=== PATIENT | female | born 2000 | race Caucasian/White ===

== ENCOUNTER 2025-04-29 15:06 | Outpatient (CLI) | payer OTHER, SELFPAY ==
--- OUTSIDE RECORDS SUMMARY | 2025-04-29 17:47 | XMS_ITS | Clinical Summary ---
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 Gender Identity Not on file Sexual Orientation Not on file Last Filed Vital Signs Vital Sign Reading Time Taken Comments Blood Pressure 114/82 03/27/2023 9:33 AM CDT Pulse 102 03/27/2023 9:33 AM CDT Temperature 36.2 C (97.1 F) 03/27/2023 9:33 AM CDT Respiratory Rate 18 03/27/2023 9:33 AM CDT Oxygen Saturation 97% 03/27/2023 9:33 AM CDT Inhaled Oxygen Concentration - - Weight 118.8 kg (262 lb) 03/27/2023 9:33 AM CDT Height 160 cm (5' 3) 03/27/2023 9:33 AM CDT Body Mass Index 46.41 03/27/2023 9:33 AM CDT Plan of Treatment Health Maintenance Due Date Last Done Comments Cervical Cancer Screening 1999 Depression Screening 1999 Hepatitis C Screening 1999 Varicella Vaccines (2 of 2 - 2-dose childhood series) 2003 2000 Regular Well Visit/Exam 18-64 11/30/2017 DTaP/Tdap/Td Vaccine (7 - Td or Tdap) 12/15/2020 12/15/2010, 12/23/2004, 03/04/2001, Additional history exists Influenza Vaccine (#1) 2025 6, 04/13/2011, 05/28/2010, Additional history exists Hepatitis B Screening Completed 2000 , 03/25/2000, 02/01/2000 Pneumococcal vaccine <65 Completed 001, 05/24/2000, 03/25/2000, Additional history exists HPV Vaccines Completed 05/01/2012, 01/2011, 12/15/2010 Insurance [facility] CHOICE OOS Care Teams Fuel Cell Builder Relationship Specialty Start Date End Date Monika Lamb PA PCP - General Neurosurgery 03/27/23
--- OUTSIDE RECORDS SUMMARY | 2025-04-29 17:48 | XMS_ITS | Clinical Summary ---
Author Organization [facility] [place] Address [address] [place] [address] Phone Care Team Providers Care Activities Leader Name Role Phone Monika Lamb Primary Care Pro vider Allergies No known active allergies Medications hydroCHLOROthia zide (MICROZIDE) 12.5 MG Capsule Take 1 Capsule by mouth daily. 30 Capsule 2 02/01/2025 Active SUMAtriptan (IMITREX) 25 MG Tablet Take 1 Tablet by mouth once as needed for Migraine for up to 1 dose. Use as directed. May repeat dose in 2 hours if headache recurs. 9 Tablet 3 02/01/2025 Active Active Problems Problem Noted Date Diagnosed Date Primary hypertension 02/01/2025 Generalized headaches 02/01/2025 Well adult exam 02/01/2025 Obesity without serious comorbidity 02/01/2025 Encounters Date Type Department Care Team Description 03/04/2025 8:00 AM CDT Office Visit [facility] - [place] [address] [place] [phone] Monika Lamb PAC Hypertension, unspecified type (Primary Dx); Nasal septal deviation; Retention cyst of nasal sinus; Generalized headaches Discharge Disposition: Discharged to home or Selfcare 03/04/2025 Travel 02/16/2025 8:37 AM CDT - 02/16/2025 11:59 PM CDT Hospital Encounter [facility] [address] [place] [address] Monika Lamb PAC Discharge Disposition: Discharged to home or Selfcare 02/16/2025 Travel 02/14/2025 Travel 02/05/2025 Transcribe Orders [facility] [address] [facility] [place] [address] Monika Lamb PAC Generalized headaches (Primary Dx) 02/01/2025 12:10 PM CDT Lab [address] [phone] Primary hypertension; Generalized headaches; Well adult exam; Need for hepatitis C screening test Discharge Disposition: Discharged to home or Selfcare 02/01/2025 10:45 AM CDT Office [place] [address] [place] [address] Monika Lamb PAC Primary hypertension (Primary Dx); Generalized headaches; Well adult exam; Obesity without serious comorbidity, unspecified class, unspecified obesity type; Need for hepatitis C screening test; Possible Discharge Disposition: Discharged to home or Selfcare 02/01/2025 Results Follow-Up [address] [phone] Monika Lamb PAC CMP (COMPREHENSIVE METABOLIC PANEL), HEMOGLOBIN A1C W/ ESTIMATED GLUCOSE, LIPID PANEL, Additional followed-up results: 5 02/01/2025 Travel 01/30/2025 Telephone [facility] Call Center [address] [place] [phone] Monika Lamb PAC Advice Only from Last 3 Months Family History Medical History Relation Name Comments Depression Father Depression Mother Relation Name Status Comments Father Alive Mother Alive Social History Tobacco Use Types Packs/Day Years Used Date Smoking Tobacco: Never Passive Smoke Exposure: Never Smokeless Tobacco: Never Tobacco Cessation:Counseling Given: No Alcohol Use Standard Drinks/Week Comments Yes 0 (1 standard drink = 0.6 oz pur e alcohol) PHQ-2 Answer Date Recorded Total Score - Questions 1-9 0 12/05 Education Answer Date Recorded What is the highest level of school you have completed or the highest degree you have received? Associate degree: occupational, technical, or vocational program 12/03/2022 Sexually Active Control Partners Comments Yes Comments No Sex and Gender Information Value Date Recorded Sex Assigned at Female 02/04/2025 4:29 PM CDT Legal Sex Female 1:54 PM CDT Gender Identity Female 02/04/2025 4:29 PM CDT Sexual Orientation Not on file Last Filed Vital Signs Vital Sign Reading Time Taken Comments Blood Pressure 122/82 03/04/2025 8:10 AM CDT Pulse 90 03/04/2025 8:10 AM CDT Temperature 36.3 C (97.3 F) 03/04/2025 8:10 AM CDT Respiratory Rate 12 03/04/2025 8:10 AM CDT Oxygen Saturation 98% 03/04/2025 8:10 AM CDT Inhaled Oxygen Concentration - - Weight 122.9 kg (271 lb) 03/04/2025 8:10 AM CDT Height 152.4 cm (5') 12/31/2024 1:25 PM CDT Body Mass Index 52.93 12/31/2024 1:25 PM CDT Plan of Treatment Upcoming Encounters Date Type Department Care Team (Late st Contact Info) Description 09/02/2025 8:00 AM CDT Office Visit [facility] - Primary Care - [place] [address] [place] [phone] Monika Lamb PAC [address] [place] [address] Health Maintenance Due Date Last Done Comments TdaP Immunization 1999 Varicella Immunization (1 of 2 - 13+ 2-dose series) 11/30/2012 Human Papillomavirus (HPV) Immunization (1 - 3-dose series) 11/30/2014 Hepatitis B Immunization (1 of 3 - 19+ 3-dose series) 11/30/2018 Influenza Immunization (#1) 2025 SARS-COV-2 Immunization (2024- season) 2025 Pap Smear 01/01/2028 12/31/2024 Respiratory Syncytial Virus (RSV) Immunization (Adult) (1 - 1-dose 75+ series) 11/30/2074 Hepatitis C Virus (HCV) Screening Completed 025 Meningococcal Immunization (ACWY) Aged Out No longer eligible based on patient's age to complete this topic Pneumococcal Immunization Combined Aged Out No longer eligible based on patient's age to complete this topic Rotavirus Immunization Aged Out No lo nger eligible based on patient's age to complete this topic Procedures Procedure Name Priority Date/Time Associated Diagnosis Comments MRI BRAIN W/WO CONTRAST Routine 02/16/2025 9:42 AM CDT Generalized headaches POCT URINE HCG () Routine 02/01/2025 11:28 AM CDT Possible THYROID SCREEN WITH REFLEX Routine 02/01/2025 11:16 AM CDT Primary hypertension Generalized headaches Well adult exam CBC WITH AUTO DIFFERENTIAL Routine 02/01/2025 11:16 AM CDT Primary hypertension Generalized headaches Well adult exam HEPATITIS C ANTIBODY Routine 02/01/2025 11:16 AM CDT Need for hepatitis C screening test THYROXINE (T4) FREE Routine 02/01/2025 1 1:16 AM CDT Primary hypertension Generalized headaches Well adult exam THYROID SCREEN WITH REFLEX Routine 02/01/2025 11:16 AM CDT Primary hypertension Generalized headaches Well adult exam LIPID PANEL Routine 02/01/2025 11:16 AM CDT Primary hypertension Generalized headaches Well adult exam HEMOGLOBIN A1C W/ ESTIMATED GLUCOSE Routine 02/01/2025 11:16 AM CDT Primary hypertension Generalized headaches Well adult exam COMPLETE BLOOD COUNT (CBC) WITH DIFF Routine 02/01/2025 11:16 AM CDT Primary hypertension Generalized headaches Well adult exam CMP (COMPREHENSIVE METABOLIC PANEL) Routine 02/01/2025 11:16 AM CDT Primary hypertension Generalized headaches Well adult exam from Last 3 Months Results * MRI BRAIN W/WO CONTRAST (02/16/2025 9:42 AM CDT) Anatomical Region Laterality Modality Head N/A Magnetic Resonan ce 02/16/2025 9:42 AM CDT Impressions 02/16/2025 10:03 AM CDT IMPRESSION: 1. No acute intracranial abnormality or suspicious mass. 2. Moderate sized polyps or retention cysts in the left maxillary sinus. 3. Leftward nasal septal deviation with osseous septal spur contacting the left inferior nasal turbinate, nonspecific though can be associated with contact point headache in the appropriate clinical setting. Narrative 02/16/2025 10:03 AM CDT DICTATING PHYSICIAN: Aly Summers M.D. - [facility] EXAM: MRI BRAIN W/WO CONTRAST, 02/16/2025 9:42 AM COMPARISON: None. INDICATION: Headache. PROCEDURE: Multiplanar, multisequence MR images were acquired of the brain before and after the intravenous administration of 20 mL of ProHance. FINDINGS: Brain: No acute hemorrhage, infarct, mass, or suspicious enhancement. Developmental venous anomaly along the posterior margin of the right sylvian fissure. Ventricles and extra-axial spaces: Appropriate for age. Orbits: Unremarkable. Paranasal sinuses: Moderate sized T2 hyperintense polyps or retention cysts in the left maxillary sinus, otherwise well aerated. Mastoid air cells: Clear. Bones: No acute abnormality. Additional findings: Leftward deviation of the nasal septum, and osseous septal spur appears to be contact the left inferior nasal turbinate. Dural venous sinuses appear grossly patent. There appears to be some focal narrowing of the distal transverse sinuses. Procedure Note Aly Summers MD - 02/16/2025 DICTATING PHYSICIAN: Aly Summers M.D. - [facility] EXAM: MRI BRAIN W/WO CONTRAST, 02/16/2025 9:42 AM COMPARISON: None. INDICATION: Headache. PROCEDURE: Multiplanar, multisequence MR images were acquired of thebrain before and after the intravenous administration of 20 mL ofProHance. FINDINGS: Brain: No acute hemorrhage, infarct, mass, or suspicious enhancement.Developmental venous anomaly along the posterior margin of the rightsylvian fissure. Ventricles and extra-axial spaces: Appropriate for age. Orbits: Unremarkable. Paranasal sinuses: Moderate sized T2 hyperintense polyps or retentioncysts in the left maxillary sinus, otherwise well aerated. Mastoid air cells: Clear. Bones: No acute abnormality. Additional findings: Leftward deviation of the nasal septum, and osseousseptal spur appears to be contact the left inferior nasal turbinate. Duralvenous sinuses appear grossly patent. There appears to be some focalnarrowing of the distal transverse sinuses. IMPRESSION: 1. No acute intracranial abnormality or suspicious mass. 2. Moderate sized polyps or retention cysts in the left maxillarysinus. 3. Leftward nasal septal deviation with osseous septal spur contactingthe left inferior nasal turbinate, nonspecific though can be associatedwith contact point headache in the appropriate clinical setting. Monika Lamb [facility] IMG MR ORDERABLES Final Result * POCT URINE HCG () (02/01/2025 11:28 AM CDT) POC URINE Negative POC URINE CONTROL [place] Urine 02/01/2025 11:2 8 AM CDT Monika Lamb [facility] POINT OF CARE RA TING (MANUAL) Final Result * THYROID SCREEN WITH REFLEX (02/01/2025 11:16 AM CDT) TSH 1.279 0.300 - 5.000 mIU/L 02/01/2025 1:13 PM CDT [facility] Blood Venipuncture / Unknown 02/01/2025 11:16 AM CDT 02/01/2025 11:16 AM CDT Monika Lamb [facility] CHEMISTRY ORDERAB LES Final Result [facility] [address] [place] [address] * HEMOGLOBIN A1C W/ ESTIMATED GLUCOSE (02/01/2025 11:16 AM CDT) Pathologist [facility] HGB-A1C 5.1 4.0 - 6.0 % 02/01/2025 1:04 PM CDT [facility] Est Average Glucose 99.7 mg/dL 02/01/2025 1:04 PM CDT [facility] Blood Venipuncture / Unknown 02/01/2025 11:16 AM CDT 02/01/2025 11:16 AM CDT Narrative [facility] - 02/01/2025 1:04 PM CDT HEMOGLOBIN A1C: DIABETIC PATIENTS: WELL-CONTROLLED: 6.2 - 7.0 INTERMEDIATE WELL-CONTROLLED: 7.0 - 9.0 POORLY-CONTROLLED: >9.0 Specimens containing greater than 5% of Hemoglobin F may result in lower than expected % HbA1C results. Monika Lamb PAC CHEMISTRY ORDERAB LES Final Result [facility] [address] [place] [address] * CBC WITH AUTO DIFFERENTIAL (02/01/2025 11:16 AM CDT) Pathologist [facility] WBC 6.40 4.00 - 12.00 10(3)/mcL 02/01/2025 12:27 PM CDT [facility] RBC 5.19 3.80 - 5.30 10(6)/mcL 02/01/2025 12:27 PM CDT [facility] HEMOGLOBIN (HGB) 15.4 12.0 - 15.8 g/dL 02/01/2025 12:27 PM CDT [facility] HEMATOCRIT (HCT) 46.3 36.0 - 47.0 % 02/01/2025 12:27 PM CDT [facility] MCV 89.2 82.0 - 96.0 fL 02/01/2025 12:27 PM CDT [facility] MCH 29.7 26.0 - 34.0 pg 02/01/2025 12:27 PM CDT [facility] MCHC 33.3 31.0 - 36.0 g/dL 02/01/2025 12:27 PM CDT [facility] PLATELET COUNT 279 140 - 440 10(3)/mcL 02/01/2025 12:27 PM CDT [facility] RDW 11.9 11.8 - 15.5 % 02/01/2025 12:27 PM CDT [facility] MPV 10.3 9.7 - 12.4 fL 02/01/2025 12:27 PM CDT [facility] NEUTROPHILS 59.4 47.0 - 73.0 % 02/01/2025 12:27 PM CDT [facility] LYMPHOCYTES 28.8 18.0 - 42.0 % 02/01/2025 12:27 PM CDT [facility] MONOCYTES 8.3 4.0 - 12.0 % 02/01/2025 12:27 PM CDT [facility] EOSINOPHILS 2.7 0.0 - 5.0 % 02/01/2025 12:27 PM CDT [facility] BASOPHILS 0.5 0.0 - 1.0 % 02/01/2025 12:27 PM CDT [facility] IMMATURE GRANULOCYTE 0.3 0.0 - 0.4 % 02/01/2025 12:27 PM CDT [facility] ABSOLUTE NEUTROPHILS 3.81 1.60 - 7.70 10(3)/[facility] 02/01/2025 12:27 PM CDT [facility] ABSOLUTE LYMPHOCYTES 1.84 1.30 - 3.20 10(3)/mcL 02/01/2025 12:27 PM CDT [facility] ABSOLUTE MONOCYTES 0.53 0.20 - 1.00 10(3)/mcL 02/01/2025 12:27 PM CDT [facility] ABSOLUTE EOSINOPHIL 0.17 0.00 - 0.40 10(3)/mcL 02/01/2025 12:27 PM CDT [facility] ABSOLUTE BASOPHILS 0.03 0.00 - 0.10 10(3)/mcL 02/01/2025 12:27 PM CDT [facility] ABSOLUTE IMMATURE GRANULOCYTE 0.02 0.00 - 0.03 10 (3) mcL. 02/01/2025 12:27 PM CDT [facility] NRBC PER 100 WBC 0 02/02/20 12:27 PM CDT [facility] Blood Venipuncture / Unknown 02/01/2025 11:16 AM CDT 02/01/2025 11:16 AM CDT Monika Lamb PAC HEMATOLOGY ORDERA BLES Final Result Performing Organization Address City/[facility]/ZIP Co de Phone Number [facility] [address] [place] [address] * THYROXINE (T4) FREE (02/01/2025 11:16 AM CDT) T4 FREE 0.9 0.7 - 1.9 ng/dL 02/01/2025 1:10 PM CDT [facility] Blood Venipuncture / Unknown 02/01/2025 11:16 AM CDT 02/01/2025 11:16 AM CDT Monika Lamb PAC CHEMISTRY ORDERAB LES Final Result Performing Organization Address City/[facility]/ZIP Co de Phone Number [facility] [address] [place] [address] * (ABNORMAL) LIPID PANEL (02/01/2025 11:16 AM CDT) CHOLESTEROL 205(H) <200 mg/dL 02/01/2025 1:05 PM CDT [facility] TRIGLYCERIDES 158(H) <150 mg/dL 02/01/2025 1:05 PM CDT [facility] HDL CHOLESTEROL 60 >40 mg/dL 1:05 PM CDT [facility] LDL 113 <130 mg/dL 02/01/2025 1:05 PM CDT [facility] VLDL 32 10 - 50 mg/dL 02/01/2025 1:05 PM CDT [facility] CHOL/HDL RATIO 3.4 0.0 - 4.4 02/01/2025 1:05 PM CDT [facility] NON-HDL CHOLESTEROL 145(H) <130 mg/dL 02/01/2025 1:05 PM CDT [facility] IS THE PATIENT REQUIRED TO BE FASTING? Yes 02/01/2025 1:05 PM CDT [facility] HAS THE PATIENT BEEN FASTING? Yes 02/01/2025 1:05 PM CDT [facility] Blood Venipuncture / Unknown 02/01/2025 11:16 AM CDT 02/01/2025 11:16 AM CDT Monika Lamb PAC CHEMISTRY ORDERAB LES Final Result [facility] [address] [place] [address] * HEPATITIS C ANTIBODY (02/01/2025 11:16 AM CDT) hepatitis C antibody 0.08 <1 S/CO 02/01/2025 10:12 PM CDT [facility] Comment: Signal/Cutoff ratio < 0.79 is Nondetected Signal/Cutoff ratio 0.80-0.99 is Grayzone Signal/Cutoff ratio > 0.99 is Detected Supplemental assays are recommended if signal/cutoff ratio is >/=1.00. Signal/cutoff ratio result >/= 5.00 is 97% predictive of positivity for recombinant immunoblot assay (RIBA) and will be reported to the [place] Department of Public Health as required. Blood Venipuncture / Unknown 02/01/2025 11:16 AM CDT 02/01/2025 11:16 AM CDT Monika Stockarlin PAC CHEMISTRY ORDERAB LES Final Result [facility] [address] [place] [address], * CMP (COMPREHENSIVE METABOLIC PANEL) (02/01/2025 11:16 AM CDT) SODIUM 140 136 - 145 mmol/L 02/01/2025 1:05 PM CDT [facility] POTASSIUM 4.1 3.5 - 5.1 mmol/L 02/01/2025 1:05 PM CDT [facility] CHLORIDE 105 98 - 107 mmol/L 02/01/2025 1:05 PM CDT [facility] CO2, VENOUS 26 22 - 30 mmol/L 02/01/2025 1:05 PM CDT [facility] ANION GAP 13.1 <18.0 mmol/L 02/01/2025 1:05 PM CDT [facility] GLUCOSE 82 70 - 99 mg/dL 02/01/2025 1:05 PM CDT [facility] BUN 11 5 - 18 mg/dL 02/01/2025 1:05 PM CDT [facility] CREATININE, BLOOD 0.75 0.60 - 1.00 mg/dL 02/01/2025 1:05 PM CDT [facility] BUN/CREATININE RATIO 15 12 - 20 ratio 02/01/2025 1:05 PM CDT [facility] TOTAL PROTEIN 7.3 6.0 - 8.0 g/dL 02/01/2025 1:05 PM CDT [facility] ALBUMIN 4.2 3.5 - 5.0 g/dL 02/01/2025 1:05 PM CDT [facility] A/G RATIO 1.4 1.0 - 2.2 02/01/2025 1:05 PM CDT [facility] CALCIUM 9.2 8.7 - 10.5 mg/dL 02/01/2025 1:05 PM CDT [facility] T BILI 0.3 0.2 - 1.2 mg/dL 02/01/2025 1:05 PM CDT [facility] SGOT (AST) 41 <43 U/L 02/01/2025 1:05 PM CDT [facility] SGPT (ALT) 42 <56 U/L 02/01/2025 1:05 PM CDT [facility] ALKALINE PHOSPHATASE 120 40 - 150 U/L 02/01/2025 1:05 PM CDT [facility] IS THE PATIENT REQUIRED TO BE FASTING? No 02/01/2025 1:05 PM CDT [facility] GFR, ESTIMATED >60 >=60 02/01/2025 1:05 PM CDT [facility] Comment: Creatinine Clearance is the preferred criteria for selecting drug dose adjustments in renally impaired patients. The GFR is provided as additional pertinent clinical information. GFR is reported in mL/min/1.73 sq m. Calculation based on the 2020 Chronic Kidney Disease Epidemiology Collaboration (CKD-EPI) equation refit without adjustment for race. GFR, EST. >60 >=60 025 1:05 PM CDT [facility] Comment: Creatinine Clearance is the preferred criteria for selecting drug dose adjustments in renally impaired patients. The GFR is provided as additional pertinent clinical information. GFR is reported in mL/min/1.73 sq m. Calculation based on the 2009 Chronic Kidney Disease Epidemiology Collaboration (CKD-EPI). GFR, EST. NONAFRICAN >60 >=60 02/01/2025 1:05 PM CDT [facility] Comment: Creatinine Clearance is the preferred criteria for selecting drug dose adjustments in renally impaired patients. The GFR is provided as additional pertinent clinical information. GFR is reported in mL/min/1.73 sq m. Calculation based on the 2009 Chronic Kidney Disease Epidemiology Collaboration (CKD-EPI). Blood Venipuncture / Unknown 02/01/2025 11:16 AM CDT 02/01/2025 11:16 AM CDT Monika Lamb PAC CHEMISTRY ORDERAB LES Final Result [facility] [place] [address] from Last 3 Months Insurance [facility] Care Teams Activities Leader Relationship Specialty Start Date End Date Monika Lamb PAC PCP - General Physician Professional Application Designer 12/03/22
== END 2025-04-29 15:07 | disposition home or self-care (01) ==
LOC: ANHLAB 15:09
PROVIDERS: PCP Physician Assistant; Visit Provider Obstetrics & Gynecology
DX: N91.2 Amenorrhea, unspecified (principal)
CPT/HCPCS: 36415; 84702

== ENCOUNTER 2025-05-01 12:51 | Outpatient (CLI) | payer OTHER, SELFPAY ==
--- OUTSIDE RECORDS SUMMARY | 2025-05-01 13:01 | XMS_ITS | Clinical Summary ---
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
--- OUTSIDE RECORDS SUMMARY | 2025-05-01 13:01 | XMS_ITS | Clinical Summary ---
Author Organization [facility] Address [address] [place] [address] Phone Care Team Providers Care Family Practice Nurse Practitioner Name Role Phone Monika Lamb Primary Care [...] Description 03/04/2025 8:00 AM CDT Office Visit [facility] - [place] [address] [place] [phone] Monika Lamb PAC Hypertension, unspecified type (Primary Dx); Nasal septal deviation; Retention cyst of nasal sinus; Generalized headaches Discharge Disposition: Discharged to home or Selfcare 03/04/2025 Travel 02/16/2025 8:37 AM CDT - 02/16/2025 11:59 PM CDT Hospital Encounter [facility] MRI [address] [place] [address] Monika Lamb PAC Discharge Disposition: Discharged to home or Selfcare 02/16/2025 Travel 02/14/2025 Travel 02/05/2025 Transcribe Orders [facility] [address] [place] [address] Monika Lamb PAC Generalized headaches (Primary Dx) 02/01/2025 12:10 PM CDT Lab [address] [address] Primary hypertension; Generalized headaches; Well adult exam; Need for hepatitis C screening test Discharge Disposition: Discharged to home or Selfcare 02/01/2025 10:45 AM CDT Office [address] [place] [address] Monika Lamb PAC Primary hypertension (Primary Dx); Generalized headaches; Well adult exam; Obesity without serious comorbidity, unspecified class, unspecified obesity type; Need for hepatitis C screening test; Possible Discharge Disposition: Discharged to home or Selfcare 02/01/2025 Results Follow-Up [address] [address] Monika Lamb PAC CMP (COMPREHENSIVE METABOLIC PANEL), HEMOGLOBIN A1C W/ ESTIMATED GLUCOSE, LIPID PANEL, Additional followed-up results: 5 02/01/2025 Travel 01/30/2025 Telephone [facility] [address] [place] [phone] Monika Lamb PAC Advice Only from Last [...] 09/02/2025 8:00 AM CDT Office Visit [facility] - [place] [address] [place] [phone] Monika Lamb PAC [address] [place] [address] Health Maintenance Due Date Last Done Comments [...] CDT DICTATING PHYSICIAN: Aly Summers M.D. - [facility] EXAM: MRI BRAIN W/WO CONTRAST, [...] 02/16/2025 DICTATING PHYSICIAN: Aly Summers M.D. - [facility] EXAM: MRI BRAIN W/WO CONTRAST, 02/16/2025 [...] in the appropriate clinical setting. Monika Lamb [facility] MR ORDERABLES Final Result * POCT URINE HCG () (02/01/2025 11:28 AM CDT) POC URINE Negative POC URINE CONTROL [employer] [place] Urine 02/01/2025 11:2 8 AM CDT Monika Lamb [facility] POINT OF CARE RA TING (MANUAL) Final Result * THYROID SCREEN WITH REFLEX (02/01/2025 11:16 AM CDT) TSH 1.279 0.300 - 5.000 mIU/L 02/01/2025 1:13 PM CDT [facility] Blood Venipuncture / Unknown 02/01/2025 11:16 AM CDT 02/01/2025 11:16 AM CDT Monika Lamb [facility] CHEMISTRY ORDERAB LES Final Result [facility] [address] [place] [address] * HEMOGLOBIN A1C W/ ESTIMATED GLUCOSE (02/01/2025 11:16 AM CDT) Pathologist [facility] HGB-A1C 5.1 4.0 - 6.0 % 02/01/2025 1:04 PM CDT [facility] Est Average Glucose 99.7 mg/dL 02/01/2025 1:04 PM CDT [facility] Blood Venipuncture / Unknown 02/01/2025 11:16 AM CDT 02/01/2025 11:16 AM CDT Narrative [facility] - 02/01/2025 1:04 PM CDT HEMOGLOBIN A1C: DIABETIC PATIENTS: WELL-CONTROLLED: 6.2 - 7.0 INTERMEDIATE WELL-CONTROLLED: 7.0 - 9.0 POORLY-CONTROLLED: >9.0 Specimens containing greater than 5% of Hemoglobin F may result in lower than expected % HbA1C results. Monika Lamb PAC CHEMISTRY ORDERAB LES Final Result [facility] [address] [place] [address] * CBC WITH AUTO DIFFERENTIAL (02/01/2025 11:16 AM CDT) Pathologist [facility] WBC 6.40 4.00 - 12.00 10(3)/mcL 02/01/2025 12:27 PM CDT [facility] RBC 5.19 3.80 - 5.30 10(6)/mcL 02/01/2025 12:27 PM CDT [facility] HEMOGLOBIN (HGB) 15.4 12.0 - 15.8 g/dL 02/01/2025 12:27 PM CDT [facility] HEMATOCRIT (HCT) 46.3 36.0 - 47.0 % 02/01/2025 12:27 PM CDT [facility] MCV 89.2 82.0 - 96.0 fL 02/01/2025 12:27 PM CDT [facility] MCH 29.7 26.0 - 34.0 pg 02/01/2025 12:27 PM CDT [facility] MCHC 33.3 31.0 - 36.0 g/dL 02/01/2025 12:27 PM CDT [facility] PLATELET COUNT 279 140 - 440 10(3)/mcL 02/01/2025 12:27 PM CDT [facility] RDW 11.9 11.8 - 15.5 % 02/01/2025 12:27 PM CDT [facility] MPV 10.3 9.7 - 12.4 fL 02/01/2025 12:27 PM CDT [facility] NEUTROPHILS 59.4 47.0 - 73.0 % 02/01/2025 12:27 PM CDT [facility] LYMPHOCYTES 28.8 18.0 - 42.0 % 02/01/2025 12:27 PM CDT [facility] MONOCYTES 8.3 4.0 - 12.0 % 02/01/2025 12:27 PM CDT [facility] EOSINOPHILS 2.7 0.0 - 5.0 % 02/01/2025 12:27 PM CDT [facility] BASOPHILS 0.5 0.0 - 1.0 % 02/01/2025 12:27 PM CDT [facility] IMMATURE GRANULOCYTE 0.3 0.0 - 0.4 % 02/01/2025 12:27 PM CDT [facility] ABSOLUTE NEUTROPHILS 3.81 1.60 - 7.70 10(3)/[facility] 02/01/2025 12:27 PM CDT [facility] ABSOLUTE LYMPHOCYTES 1.84 1.30 - 3.20 10(3)/mcL 02/01/2025 12:27 PM CDT [facility] ABSOLUTE MONOCYTES 0.53 0.20 - 1.00 10(3)/mcL 02/01/2025 12:27 PM CDT [facility] ABSOLUTE EOSINOPHIL 0.17 0.00 - 0.40 10(3)/mcL 02/01/2025 12:27 PM CDT [facility] ABSOLUTE BASOPHILS 0.03 0.00 - 0.10 10(3)/mcL 02/01/2025 12:27 PM CDT [facility] ABSOLUTE IMMATURE GRANULOCYTE 0.02 0.00 - 0.03 10 (3) mcL. 02/01/2025 12:27 PM CDT [facility] NRBC PER 100 WBC 0 02/02/20 12:27 PM CDT [facility] Blood Venipuncture / Unknown 02/01/2025 11:16 AM CDT 02/01/2025 11:16 AM CDT Monika Lamb PAC HEMATOLOGY ORDERA BLES Final Result Performing Organization Address City/[facility]/ZIP Co de Phone Number [facility] [address] [place] [address] * THYROXINE (T4) FREE (02/01/2025 11:16 AM CDT) T4 FREE 0.9 0.7 - 1.9 ng/dL 02/01/2025 1:10 PM CDT [facility] Blood Venipuncture / Unknown 02/01/2025 11:16 AM CDT 02/01/2025 11:16 AM CDT Monika Lamb PAC CHEMISTRY ORDERAB LES Final Result Performing Organization Address City/[facility]/ZIP Co de Phone Number [facility] [address] [place] [address] * (ABNORMAL) LIPID PANEL (02/01/2025 11:16 AM CDT) CHOLESTEROL 205(H) <200 mg/dL 02/01/2025 1:05 PM CDT [facility] TRIGLYCERIDES 158(H) <150 mg/dL 02/01/2025 1:05 PM CDT [facility] HDL CHOLESTEROL 60 >40 mg/dL 1:05 PM CDT [facility] LDL 113 <130 mg/dL 02/01/2025 1:05 PM CDT [facility] VLDL 32 10 - 50 mg/dL 02/01/2025 1:05 PM CDT [facility] CHOL/HDL RATIO 3.4 0.0 - 4.4 02/01/2025 1:05 PM CDT [facility] NON-HDL CHOLESTEROL 145(H) <130 mg/dL 02/01/2025 1:05 PM CDT [facility] IS THE PATIENT REQUIRED TO BE FASTING? Yes 02/01/2025 1:05 PM CDT [facility] HAS THE PATIENT BEEN FASTING? Yes 02/01/2025 1:05 PM CDT [facility] Blood Venipuncture / Unknown 02/01/2025 11:16 AM CDT 02/01/2025 11:16 AM CDT Monika Lamb PAC CHEMISTRY ORDERAB LES Final Result [facility] [address] [place] [address] * HEPATITIS C ANTIBODY (02/01/2025 11:16 AM CDT) hepatitis C antibody 0.08 <1 S/CO 02/01/2025 10:12 PM CDT [facility] Comment: Signal/Cutoff ratio < 0.79 is Nondetected Signal/Cutoff ratio 0.80-0.99 is Grayzone Signal/Cutoff ratio > 0.99 is Detected Supplemental assays are recommended if signal/cutoff ratio is >/=1.00. Signal/cutoff ratio result >/= 5.00 is 97% predictive of positivity for recombinant immunoblot assay (RIBA) and will be reported to the [place] [facility] Public [facility] as required. Blood Venipuncture / Unknown 02/01/2025 11:16 AM CDT 02/01/2025 11:16 AM CDT Monika Stockarlin PAC CHEMISTRY ORDERAB LES Final Result [facility] [address] [place] [address], * CMP (COMPREHENSIVE METABOLIC PANEL) (02/01/2025 11:16 AM CDT) SODIUM 140 136 - 145 mmol/L 02/01/2025 1:05 PM CDT [facility] POTASSIUM 4.1 3.5 - 5.1 mmol/L 02/01/2025 1:05 PM CDT [facility] CHLORIDE 105 98 - 107 mmol/L 02/01/2025 1:05 PM CDT [facility] CO2, VENOUS 26 22 - 30 mmol/L 02/01/2025 1:05 PM CDT [facility] ANION GAP 13.1 <18.0 mmol/L 02/01/2025 1:05 PM CDT [facility] GLUCOSE 82 70 - 99 mg/dL 02/01/2025 1:05 PM CDT [facility] BUN 11 5 - 18 mg/dL 02/01/2025 1:05 PM CDT [facility] CREATININE, BLOOD 0.75 0.60 - 1.00 mg/dL 02/01/2025 1:05 PM CDT [facility] BUN/CREATININE RATIO 15 12 - 20 ratio 02/01/2025 1:05 PM CDT [facility] TOTAL PROTEIN 7.3 6.0 - 8.0 g/dL 02/01/2025 1:05 PM CDT [facility] ALBUMIN 4.2 3.5 - 5.0 g/dL 02/01/2025 1:05 PM CDT [facility] A/G RATIO 1.4 1.0 - 2.2 02/01/2025 1:05 PM CDT [facility] CALCIUM 9.2 8.7 - 10.5 mg/dL 02/01/2025 1:05 PM CDT [facility] T BILI 0.3 0.2 - 1.2 mg/dL 02/01/2025 1:05 PM CDT [facility] SGOT (AST) 41 <43 U/L 02/01/2025 1:05 PM CDT [facility] SGPT (ALT) 42 <56 U/L 02/01/2025 1:05 PM CDT [facility] ALKALINE PHOSPHATASE 120 40 - 150 U/L 02/01/2025 1:05 PM CDT [facility] IS THE PATIENT REQUIRED TO BE FASTING? No 02/01/2025 1:05 PM CDT [facility] GFR, ESTIMATED >60 >=60 02/01/2025 1:05 PM CDT [facility] Comment: Creatinine Clearance is the preferred criteria for selecting drug dose adjustments in renally impaired patients. The GFR is provided as additional pertinent clinical information. GFR is reported in mL/min/1.73 sq m. Calculation based on the 2020 Chronic Kidney Disease Epidemiology Collaboration (CKD-EPI) equation refit without adjustment for race. GFR, EST. >60 >=60 025 1:05 PM CDT [facility] Comment: Creatinine Clearance is the preferred criteria for selecting drug dose adjustments in renally impaired patients. The GFR is provided as additional pertinent clinical information. GFR is reported in mL/min/1.73 sq m. Calculation based on the 2009 Chronic Kidney Disease Epidemiology Collaboration (CKD-EPI). GFR, EST. NONAFRICAN >60 >=60 02/01/2025 1:05 PM CDT [facility] Comment: Creatinine Clearance is the [...] PAC CHEMISTRY ORDERAB LES Final Result [facility] [address] [place] [address] from Last 3 Months Insurance [facility] Care Teams Family Practice Nurse Practitioner Relationship Specialty Start Date End Date Monika Lamb PAC PCP - General Physician [employer] 12/03/22
[2025-05-01 13:13] LABS: Total Volume 24 Hour Urine 2400 ml
[2025-05-01 13:51] LABS: Total Protein Urine 24 Hr 192 mg/24hr (28-141); Total Protein Urine Random 8 mg/dL
== END 2025-05-01 12:52 | disposition home or self-care (01) ==
LOC: ANHLAB 12:52
PROVIDERS: PCP Physician Assistant; Visit Provider Obstetrics & Gynecology
DX: N91.2 Amenorrhea, unspecified (principal)
CPT/HCPCS: 81050; 84156

== ENCOUNTER 2025-05-03 11:02 | Outpatient (CLI) | payer OTHER, SELFPAY ==
--- OUTSIDE RECORDS SUMMARY | 2025-05-03 11:05 | XMS_ITS | Clinical Summary ---
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 CHOICE OOS Care Teams Funeral Arrangement Director Relationship Specialty Start Date End Date Monika Lamb PA PCP - General Neurosurgery 03/27/23
--- OUTSIDE RECORDS SUMMARY | 2025-05-03 11:05 | XMS_ITS | Clinical Summary ---
Author Organization [facility] [place] Address [address] [place] [address] Phone Care Team Providers Care Vice President Fixed Income Name Role Phone Monika Lamb Primary Care [...] Description 03/04/2025 8:00 AM CDT Office Visit [facility] - Primary Care - [place] [address] [place] [phone] Monika Lamb PAC Hypertension, unspecified type (Primary Dx); Nasal septal deviation; Retention cyst of nasal sinus; Generalized headaches Discharge Disposition: Discharged to home or Selfcare 03/04/2025 Travel 02/16/2025 8:37 AM CDT - 02/16/2025 11:59 PM CDT Hospital Encounter [facility] MRI [address] [place] [address] Monika Lamb PAC Discharge Disposition: Discharged to home or Selfcare 02/16/2025 Travel 02/14/2025 Travel 02/05/2025 Transcribe Orders [facility] [address] [place] [address] Monika Lamb PAC Generalized headaches (Primary Dx) 02/01/2025 12:10 PM CDT Lab [address] [phone] Primary hypertension; Generalized headaches; Well adult exam; Need for hepatitis C screening test Discharge Disposition: Discharged to home or Selfcare 02/01/2025 10:45 AM CDT Office [address] [place] [phone] Monika Lamb PAC Primary hypertension (Primary Dx); Generalized headaches; Well adult exam; Obesity without serious comorbidity, unspecified class, unspecified obesity type; Need for hepatitis C screening test; Possible Discharge Disposition: Discharged to home or Selfcare 02/01/2025 Results Follow-Up [address] [phone] Monika Lamb PAC CMP (COMPREHENSIVE METABOLIC PANEL), HEMOGLOBIN A1C W/ ESTIMATED GLUCOSE, LIPID PANEL, Additional followed-up results: 5 02/01/2025 Travel from Last 3 Months Family History Medical [...] 09/02/2025 8:00 AM CDT Office Visit [facility] - Primary Care - [place] [address] [place] [address] Monika Lamb PAC [address] [place] [address] Health Maintenance Due Date Last Done Comments TdaP Immunization 1999 Varicella Immunization (1 of 2 - 13+ 2-dose series) 11/30/2012 Human Papillomavirus (HPV) Immunization (1 - 3-dose series) 11/30/2014 Hepatitis B Immunization (1 of 3 - 19+ 3-dose series) 11/30/2018 Influenza Immunization (#1) 2025 SARS-COV-2 Immunization (1 - 2024- season) 2025 Pap Smear 01/01/2028 12/31/2024 Respiratory [...] CDT DICTATING PHYSICIAN: Aly Summers M.D. - [facility] EXAM: MRI BRAIN W/WO CONTRAST, [...] 02/16/2025 DICTATING PHYSICIAN: Aly Summers M.D. - [facility] EXAM: MRI BRAIN W/WO CONTRAST, 02/16/2025 [...] in the appropriate clinical setting. Monika Lamb [facility] IMG MR ORDERABLES Final Result * POCT URINE HCG () (02/01/2025 11:28 AM CDT) Pathologist [facility] POC URINE Negative POC URINE CONTROL Minilab Operator Pass Urine 02/01/2025 11:2 8 AM CDT Monika Lamb [facility] POINT OF CARE RA TING (MANUAL) Final Result * THYROID SCREEN WITH REFLEX (02/01/2025 11:16 AM CDT) [facility] TSH 1.279 0.300 - 5.000 mIU/L 02/01/2025 1:13 PM CDT [facility] Blood Venipuncture / Unknown 02/01/2025 11:16 AM CDT 02/01/2025 11:16 AM CDT Monika Lamb [facility] CHEMISTRY ORDERAB LES Final Result [facility] [place] [address] * HEMOGLOBIN A1C W/ ESTIMATED GLUCOSE (02/01/2025 11:16 AM CDT) [facility] HGB-A1C 5.1 4.0 - 6.0 % 02/01/2025 1:04 PM CDT [facility] Est Average Glucose 99.7 mg/dL 02/01/2025 1:04 PM CDT [facility] Blood Venipuncture / Unknown 02/01/2025 11:16 AM CDT 02/01/2025 11:16 AM CDT Narrative [facility] - 02/01/2025 1:04 PM CDT HEMOGLOBIN A1C: DIABETIC PATIENTS: WELL-CONTROLLED: 6.2 - 7.0 INTERMEDIATE WELL-CONTROLLED: 7.0 - 9.0 POORLY-CONTROLLED: >9.0 Specimens containing greater than 5% of Hemoglobin F may result in lower than expected % HbA1C results. Monika Lamb PAC CHEMISTRY ORDERAB LES Final Result [facility] [address] [place] [address] * CBC WITH AUTO DIFFERENTIAL (02/01/2025 11:16 AM CDT) WBC 6.40 4.00 - 12.00 10(3)/mcL 02/01/2025 12:27 PM CDT [facility] RBC 5.19 3.80 - 5.30 10(6)/mcL 02/01/2025 12:27 PM CDT [facility] HEMOGLOBIN (HGB) 15.4 12.0 - 15.8 g/dL 02/01/2025 12:27 PM CDT [facility] HEMATOCRIT (HCT) 46.3 36.0 - 47.0 % 02/01/2025 12:27 PM CDT [facility] MCV 89.2 82.0 - 96.0 fL 02/01/2025 12:27 PM CDT [facility] MCH 29.7 26.0 - 34.0 pg 02/01/2025 12:27 PM CDT [facility] MCHC 33.3 31.0 - 36.0 g/dL 02/01/2025 12:27 PM CDT [facility] PLATELET COUNT 279 140 - 440 10(3)/mcL 02/01/2025 12:27 PM CDT [facility] RDW 11.9 11.8 - 15.5 % 02/01/2025 12:27 PM CDT [facility] MPV 10.3 9.7 - 12.4 fL 02/01/2025 12:27 PM CDT [facility] NEUTROPHILS 59.4 47.0 - 73.0 % 02/01/2025 12:27 PM CDT [facility] LYMPHOCYTES 28.8 18.0 - 42.0 % 02/01/2025 12:27 PM CDT [facility] MONOCYTES 8.3 4.0 - 12.0 % 02/01/2025 12:27 PM CDT [facility] EOSINOPHILS 2.7 0.0 - 5.0 % 02/01/2025 12:27 PM CDT [facility] BASOPHILS 0.5 0.0 - 1.0 % 02/01/2025 12:27 PM CDT [facility] IMMATURE GRANULOCYTE 0.3 0.0 - 0.4 % 02/01/2025 12:27 PM CDT [facility] ABSOLUTE NEUTROPHILS 3.81 1.60 - 7.70 10(3)/mcL 02/01/2025 12:27 PM CDT [facility] ABSOLUTE LYMPHOCYTES 1.84 1.30 - 3.20 10(3)/[facility] 02/01/2025 12:27 PM CDT [facility] ABSOLUTE MONOCYTES 0.53 0.20 - 1.00 10(3)/mcL 02/01/2025 12:27 PM CDT [facility] ABSOLUTE EOSINOPHIL 0.17 0.00 - 0.40 10(3)/mcL 02/01/2025 12:27 PM CDT [facility] ABSOLUTE BASOPHILS 0.03 0.00 - 0.10 10(3)/mcL 02/01/2025 12:27 PM CDT [facility] ABSOLUTE IMMATURE GRANULOCYTE 0.02 0.00 - 0.03 10 (3) mcL. 02/01/2025 12:27 PM CDT [facility] NRBC PER 100 WBC 0 02/02/20 12:27 PM CDT [facility] Blood Venipuncture / Unknown 02/01/2025 11:16 AM CDT 02/01/2025 11:16 AM CDT Monika Lamb [facility] HEMATOLOGY ORDERA BLES Final Result [facility] [address] [place] [address] * THYROXINE (T4) FREE (02/01/2025 11:16 AM CDT) T4 FREE 0.9 0.7 - 1.9 ng/dL 02/01/2025 1:10 PM CDT [facility] Blood Venipuncture / Unknown 02/01/2025 11:16 AM CDT 02/01/2025 11:16 AM CDT Monika Lamb [facility] CHEMISTRY ORDERAB LES Final Result [facility] [address] [place] [address] * (ABNORMAL) LIPID PANEL (02/01/2025 11:16 AM CDT) CHOLESTEROL 205(H) <200 mg/dL 02/01/2025 1:05 PM CDT [facility] TRIGLYCERIDES 158(H) <150 mg/dL 02/01/2025 1:05 PM CDT [facility] HDL CHOLESTEROL 60 >40 mg/dL 1:05 PM CDT [facility] LDL 113 <130 mg/dL 02/01/2025 1:05 PM CDT [facility] VLDL 32 10 - 50 mg/dL 02/01/2025 1:05 PM CDT [facility] CHOL/HDL RATIO 3.4 0.0 - 4.4 02/01/2025 1:05 PM CDT [facility] NON-HDL CHOLESTEROL 145(H) <130 mg/dL 02/01/2025 1:05 PM CDT [facility] IS THE PATIENT REQUIRED TO BE FASTING? Yes 02/01/2025 1:05 PM CDT [facility] HAS THE PATIENT BEEN FASTING? Yes 02/01/2025 1:05 PM CDT [facility] Blood Venipuncture / Unknown 02/01/2025 11:16 AM CDT 02/01/2025 11:16 AM CDT Monika Lamb PAC CHEMISTRY ORDERAB LES Final Result Performing Organization Address City/[facility] Co de Phone Number [facility] [place] [address] * HEPATITIS C ANTIBODY (02/01/2025 11:16 AM CDT) hepatitis C antibody 0.08 <1 S/CO 02/01/2025 10:12 PM CDT [facility] Comment: Signal/Cutoff ratio < 0.79 is Nondetected [...] ORDERAB LES Final Result Performing Organization Address City/[facility] Co de Phone Number [facility] [address] [place] [address], [place] * CMP (COMPREHENSIVE METABOLIC PANEL) (02/01/2025 11:16 AM CDT) SODIUM 140 136 - 145 mmol/L 02/01/2025 1:05 PM CDT [facility] POTASSIUM 4.1 3.5 - 5.1 mmol/L 02/01/2025 1:05 PM CDT [facility] CHLORIDE 105 98 - 107 mmol/L 02/01/2025 1:05 PM CDT [facility] CO2, VENOUS 26 22 - 30 mmol/L 02/01/2025 1:05 PM CDT [facility] ANION GAP 13.1 <18.0 mmol/L 02/01/2025 1:05 PM CDT [facility] GLUCOSE 82 70 - 99 mg/dL 02/01/2025 1:05 PM CDT [facility] BUN 11 5 - 18 mg/dL 02/01/2025 1:05 PM CDT [facility] CREATININE, BLOOD 0.75 0.60 - 1.00 mg/dL 02/01/2025 1:05 PM T [facility] BUN/CREATININE RATIO 15 12 - 20 ratio 02/01/2025 1:05 PM T [facility] TOTAL PROTEIN 7.3 6.0 - 8.0 g/dL 02/01/2025 1:05 PM CDT [facility] ALBUMIN 4.2 3.5 - 5.0 g/dL 02/01/2025 1:05 PM T [facility] A/G RATIO 1.4 1.0 - 2.2 02/01/2025 1:05 PM CDT [facility] CALCIUM 9.2 8.7 - 10.5 mg/dL 02/01/2025 1:05 PM CDT [facility] T BILI 0.3 0.2 - 1.2 mg/dL 02/01/2025 1:05 PM CDT [facility] SGOT (AST) 41 <43 U/L 02/01/2025 1:05 PM CDT [facility] SGPT (ALT) 42 <56 U/L 02/01/2025 1:05 PM CDT [facility] ALKALINE PHOSPHATASE 120 40 - 150 U/L 02/01/2025 1:05 PM CDT [facility] IS THE PATIENT REQUIRED TO BE FASTING? No 02/01/2025 1:05 PM CDT [facility] GFR, ESTIMATED >60 >=60 02/01/2025 1:05 PM CDT [facility] Comment: Creatinine Clearance is the preferred criteria for selecting drug dose adjustments in renally impaired patients. The GFR is provided as additional pertinent clinical information. GFR is reported in mL/min/1.73 sq m. Calculation based on the 2020 Chronic Kidney Disease Epidemiology Collaboration (CKD-EPI) equation refit without adjustment for race. GFR, EST. >60 >=60 025 1:05 PM CDT [facility] Comment: Creatinine Clearance is the preferred criteria for selecting drug dose adjustments in renally impaired patients. The GFR is provided as additional pertinent clinical information. GFR is reported in mL/min/1.73 sq m. Calculation based on the 2009 Chronic Kidney Disease Epidemiology Collaboration (CKD-EPI). GFR, EST. NONAFRICAN >60 >=60 02/01/2025 1:05 PM CDT [facility] Comment: Creatinine Clearance is the preferred criteria for selecting drug dose adjustments in renally impaired patients. The GFR is provided as additional pertinent clinical information. GFR is reported in mL/min/1.73 sq m. Calculation based on the 2009 Chronic Kidney Disease Epidemiology Collaboration (CKD-EPI). Blood Venipuncture / Unknown 02/01/2025 11:16 AM CDT 02/01/2025 11:16 AM CDT us Monika Lamb PAC CHEMISTRY ORDERAB LES Final Result [facility] [place] [address] from Last 3 Months Insurance Care Teams Vice President Fixed Income Relationship Specialty Start Date End Date Monika Lamb PAC PCP - General Physician Nursing Faculty 12/03/22
== END 2025-05-03 11:03 | disposition home or self-care (01) ==
LOC: ANHLAB 11:03
PROVIDERS: PCP Physician Assistant; Visit Provider Obstetrics & Gynecology
DX: O20.0 Threatened abortion (principal)
CPT/HCPCS: 36415; 84702

== ENCOUNTER 2025-06-01 16:58 | Emergency (ER) | payer OTHER, SELFPAY ==
--- NOTE | ~2025-06-01 | US_ITS ---
EXAMINATION: Ultrasound uterus, OB, Limited, assess viability: DATE: 06/01/2025. INDICATION: 24-year-old with history of vaginal cramping and spotting. TECHNIQUE: Limited ultrasound examination of the uterus. COMPARISON: Previous examination dated 05/15/2025. FINDINGS: Intrauterine uterine gestational sac is noted which is minimally irregular in outline. [place]-rump length of 2.7 cm corresponds to 9 weeks and 3 days of gestational age. However, no cardiac activity is noted in this examination. No adnexal mass or fluid collections are seen. IMPRESSION: 1. ) fetus 9 weeks 3 days in size by crown-rump length. However no cardiac activity is noted suggestive of demise. Reviewed, dictated and finalized at location [facility] IMPRESSION: 1. ) fetus 9 weeks 3 days in size by crown-rump length. However no cardia c activity is noted suggestive of demise.
[2025-06-01 17:00] VITALS: BP 134/83; PULSE 108; RESP 16; TEMP 36.4; O2SAT 99
--- OUTSIDE RECORDS SUMMARY | 2025-06-01 17:00 | XMS_ITS | Clinical Summary ---
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
--- OUTSIDE RECORDS SUMMARY | 2025-06-01 17:00 | XMS_ITS | Clinical Summary ---
Author Organization [facility] [place] Address [address] [place] [address] Phone Care Team Providers Care Glass Glazier Name Role Phone Monika Lamb Primary Care Pro vider Allergies No known active allergies Medications hydroCHLOROthia zide (MICROZIDE) 12.5 MG Capsule Take 1 Capsule by mouth daily. 30 Capsule 2 Active Additional Information Patient not taking.Reported on 05/15/2025 SUMAtriptan (IMITREX) 25 MG Tablet Take 1 Tablet by mouth once as needed for Migraine for up to 1 dose. Use as directed. May repeat dose in 2 hours if headache recurs. 9 Tablet 3 Active Additional Information Patient not taking.Reported on 05/15/2025 amoxicillin (AMOXIL) 500 MG Capsule Take 1 Capsule by mouth 2 times daily for 10 days. 20 Capsule 05/25/20 25 Active Problems Problem Noted Date Diagnosed Date Primary hypertension 02/01/2025 Generalized headaches 02/01/2025 Well adult exam 02/01/2025 Obesity without serious comorbidity 02/01/2025 Comments Yes Encounters Date Type Department Care Team Description 05/15/2025 10:15 AM POKE IN Office Visit [facility] - Primary Care - [place] [address] [place] [phone] Monika Lamb PAC Acute cough (Primary Dx); Nasal congestion; Sore throat Discharge Disposition: Discharged to home or Selfcare 05/15/2025 Travel 05/15/2025 Nurse Triage [facility] [address] [place] [address] Monika Lamb PAC Advice Only; Cough; Fever; Sore Throat 03/04/2025 8:00 AM CDT Office Visit [facility] - Primary Care - [place] [id number] [place] [address] Monika Lamb, LISA Hypertension, unspecified type (Primary Dx); Nasal septal deviation; Retention cyst of nasal sinus; Generalized headaches Discharge Disposition: Discharged to home or Selfcare 03/04/2025 Travel from Last 3 Months Family History [...] Sexually Active Control Partners Comments Yes Comments Yes Sex and Gender Information Value Date Recorded Sex Assigned at Female 02/04/2025 4:29 PM CDT Legal Sex Female 1:54 PM CDT Gender Identity Female 02/04/2025 4:29 PM CDT Sexual Orientation Not on file Last Filed Vital Signs Vital Sign Reading Time Taken Comments Blood Pressure 130/90 05/15/2025 10:11 AM POKE IN Pulse 92 05/15/2025 10:11 AM POKE IN Temperature 36.3 C (97.4 F) 05/15/2025 10:11 AM POKE IN Respiratory Rate 12 05/15/2025 10:11 AM POKE IN Oxygen Saturation 99% 05/15/2025 10:11 AM POKE IN Inhaled Oxygen Concentration - - Weight 127.9 kg (282 lb) 05/15/2025 10:11 AM POKE IN Height 152.4 cm (5') 12/31/2024 1:25 PM CDT Body Mass Index 55.07 12/31/2024 1:25 PM CDT Plan of Treatment Upcoming Encounters Date Type Department Care Team (Late st Contact Info) Description 09/02/2025 8:00 AM CDT Office Visit [facility] - Primary Care - [place] [address] [phone] Monika Lamb, [facility] [address] [place] [address] Health Maintenance Due Date Last Done Comments TdaP Immunization 1999 Varicella Immunization (1 of 2 - 13+ 2-dose series) 11/30/2012 Human Papillomavirus (HPV) Immunization (1 - 3-dose series) 11/30/2014 Hepatitis B Immunization (1 of 3 - 19+ 3-dose series) 11/30/2018 Influenza Immunization (#1) 2025 SARS-COV-2 Immunization ( - season) 2025 Hepatitis C Virus (HCV) Screening 02/01/2026 025 Pap Smear 01/01/2028 12/31/2024 Respiratory Syncytial Virus (RSV) Immunization (Adult) (1 - 1-dose 75+ series) 11/30/2074 Meningococcal Immunization (ACWY) Aged Out No longer eligible based on patient's age to complete this topic Pneumococcal Immunization Combined Aged Out No longer eligible based on patient's age to complete this topic Rotavirus Immunization Aged Out No lo nger eligible based on patient's age to complete this topic Procedures Procedure Name Priority Date/Time Associated Diagnosis Comments POC SARS-COV-2 BY MOLECULAR Routine 05/15/2025 10:15 AM POKE IN Acute cough Nasal congestion Sore throat POC INFLUENZA A AND B BY MOLECULAR Routine 05/15/2025 10:15 AM POKE IN Acute cough Nasal congestion Sore throat HEPATITIS C ANTIBODY Routine 02/01/2025 11:16 AM CDT Need for hepatitis C screening test from Last 3 Months or Most Recently Relevant to Health Maintenance Results * POC SARS-COV-2 BY MOLECULAR (05/15/2025 10:15 AM POKE IN) SARSCOV2 Negative Negative, INVALID PROCEDURE CONTROL Valid 05/15/2025 10:1 5 AM POKE IN Monika Labm [facility] POINT OF CARE RA TING (MANUAL) Final Result * POC INFLUENZA A AND B BY MOLECULAR (05/15/2025 10:15 AM POKE IN) INFLUENZA A RNA Negative Negative, Invalid INFLUENZA B RNA Negative Negative, Invalid PROCEDURE CONTROL Valid 05/15/2025 10:1 5 [facility] POINT OF CARE RA TING (MANUAL) Final Result * HEPATITIS C ANTIBODY (02/01/2025 11:16 AM CDT) hepatitis C antibody 0.08 <1 S/CO 02/01/2025 10:12 PM CDT [facility] Comment: Signal/Cutoff ratio < 0.79 is Nondetected Signal/Cutoff ratio 0.80-0.99 is Grayzone Signal/Cutoff ratio > 0.99 is Detected Supplemental assays are recommended if signal/cutoff ratio is >/=1.00. Signal/cutoff ratio result >/= 5.00 is 97% predictive of positivity for recombinant immunoblot assay (RIBA) and will be reported to the [place] Department of Public [facility] as required. Blood Venipuncture / Unknown 02/01/2025 11:16 AM CDT 02/01/2025 11:16 AM CDT Monika Lamb [facility] CHEMISTRY ORDERAB LES Final Result [facility] [address] [place] [address], [place] from Last 3 Months or Most Recently Relevant to Health Maintenance Insurance [facility] Care Teams Glass Glazier Relationship Specialty Start Date End Date Monika Lamb PAC PCP - General Physician Construction Site Crossing Guard 12/03/22
[2025-06-01 18:25] VITALS: BP 131/81; PULSE 87; RESP 15; O2SAT 98
--- NOTE | 2025-06-01 18:28 | ED.PREGNANCY ---
HPI - General Chief complaint: Vaginal Bleeding Stated complaint: 10 weeks preg, spotting Time Seen by Provider: 06/01/25 18:21 History of Present Illness HPI Narrative: Patient is a 24-year-old female who presents to the ER with a 2 day history of lower back pain and brown discharge. She reports earlier today she started having bright red vaginal spotting. Pt also endorses intermittent abdominal cramping. She reports she is a started wished with an OBGYN, Dr. Zambrano. Patient denies any urinary symptoms, recent fevers, or issues with constipation. Related Data Home Medications ?Medication ?Instructions ?Recorded ?Confirmed ?Last Taken ?Type vits no.126-ferrous fum tablet PO 04/29/25 05/21/25 Unknown History 28 mg iron-folic acid 800 mcg tablet (Classic ) Allergies Allergy/AdvReac Type Severity Reaction Status Date / Time No Known Allergies Allergy Verified 06/01/25 17:01 Review of Systems Review of Systems: All systems reviewed & are unremarkable except as noted in HPI and below PMFSH Past Medical History Medical History Hypertension Surgical History Surgical History H/O wisdom tooth extraction Social History Social History Smoking status: Never smoker Second hand tobacco smoke exposure: No Alcohol intake: former Alcohol use details: socially Substance use: never Substance use type: does not use Lack of Transportation: No Lack of Food: Never True Current Housing: I Have Housing Concerned About Future Housing: No Difficulty Paying Gas/Electric Bills: No Difficulty Paying for Meds: No Currently Unemployed: No Education: Associate Degree Difficulty w/ Childcare or Family Care: No Living arrangements: with family Additional living arrangements comments: Occupation/Education: occupation Additional occupation/education comments: Banker Gender identity (if verbalized by the patient): Female Sexual Orientation (if Verbalized by the Patient): Straight or Heterosexual Exam Narrative: GENERAL: Well appearing, well-nourished, non-toxic, in no acute distress. HEAD: Normocephalic, atraumatic. NECK: Supple. No adenopathy, no masses. RESPIRATORY: Airway patent, respirations nonlabored. Clear to auscultation bilaterally, no rales, rhonchi, wheezing. CARDIOVASCULAR: Regular rate and rhythm without murmurs, rubs, or gallops. Peripheral pulses 2+ and equal bilaterally. ABDOMINAL: Soft, nontender, nondistended, no hepatosplenomegaly. Normoactive BS. MUSCULOSKELETAL: Moves all extremities. Strength/ROM intact without gross deformities. SKIN: Warm, dry, normal color. No rashes. NEURO: A&O X3. Speech clear. Cranial nerves II-XII intact. No ataxic movements. PSYCHIATRIC: Appropriate mood and affect. Normal interaction. Discharge Plan Discharge Clinical Impression: Incomplete , Vaginal bleeding, demise Patient Disposition: Home Condition: Stable Instructions: Antibiotic Form, Miscarriage (ED) Additional Instructions: Please return to the ER with any worsening symptoms. Follow-up with your OBGYN as soon as possible for further evaluation. Take all medications as prescribed, including regularly scheduled medications. You may take Tylenol as needed for pain control. Patient Language: Maori Prescriptions: No Action Classic 28 mg iron- 800 mcg tablet PO Follow-up/Referrals: Mike Zambrano MD [Physician, ADVERTISING ACCOUNT EXECUTIVE] Zainab,VENKATA Frank [Primary Care Provider, Unknown] Stand Alone Forms: Work/School Release IP Time of Disposition: 21:15 Course Vital Signs Vital signs: Vital Signs Temperature 36.4 C L 06/01/25 17:00 Pulse Rate 108 H 06/01/25 17:00 Respiratory Rate 16 06/01/25 17:00 Blood Pressure 134/83 06/01/25 17:00 Pulse Oximetry 99 06/01/25 17:00 Oxygen Delivery Room Air 06/01/25 17:00 Temperature 36.4 C L 06/01/25 17:00 Pulse Rate 89 06/01/25 21:07 Respiratory Rate 16 06/01/25 21:07 Blood Pressure 127/85 06/01/25 21:07 Pulse Oximetry 98 06/01/25 21:07 Oxygen Delivery Room Air 06/01/25 17:00 [facility] Narrative Medical decision making narrative: Patient is a 24-year-old female who presents to the ER with a 2 day history of lower back pain and brown discharge. She reports earlier today she started having bright red vaginal spotting. Pt also endorses intermittent abdominal cramping. She reports she is a started wished with an OBGYN, Dr. Zambrano. Patient denies any urinary symptoms, recent fevers, or issues with constipation. Labs Ordered: CBC, CMP, PTT, INR, Rh immunoglobulin, UA, beta hCG Imaging Ordered: Ob ultrasound Diagnosis: Imminent , vaginal bleeding Consults: OBGYN (Dr. Zambrano), outpatient. Patient Education/Shared MDM: Results of imaging shared with patient. She is requesting to be discharged home at this time without having her blood work drawn. Patient strongly advised to follow-up with her OBGYN as soon as possible for further evaluation. She will not be discharged home with any new prescriptions. Strict return precautions provided. Patient verbalized understanding and is in agreement with plan. Vital signs stable at time of discharge. All questions answered. Differential Diagnosis Differential Diagnosis: Threatened miscarriage, vaginal bleeding, urinary tract infection Imaging Data Attestation: I personally reviewed and interpreted this imaging study as follows: Radiologist's impression: ITS Impressions Obstetrics Ultrasound 06/01/25 19:12 IMPRESSION: 1. ) fetus 9 weeks 3 days in size by crown-rump length. However no cardiac activity is noted suggestive of demise.
--- NOTE | 2025-06-01 20:56 | PC.NURSE ---
pt refused IV stating can we just draw labs for now. I do not think Ill need medications
[2025-06-01 21:07] VITALS: BP 127/85; PULSE 89; RESP 16; O2SAT 98
--- NOTE | 2025-06-01 21:20 | PC.NURSE ---
pt refused blood work and Share packet. pt reports I just want to go home. Rosibel GONZALEZ made aware
[2025-06-01 21:59] VITALS: BP 127/85; PULSE 89; RESP 16; O2SAT 98
== END 2025-06-01 22:19 | disposition home or self-care (01) ==
PROVIDERS: Emergency Provider Registered Nurse; PCP Physician Assistant
DX: O02.1 Missed abortion (principal)
CPT/HCPCS: 76801; 76817; 99284

== ENCOUNTER 2025-06-04 12:58 | Outpatient (CLI) | payer OTHER, SELFPAY ==
--- OUTSIDE RECORDS SUMMARY | 2025-06-03 10:15 | XMS_ITS | Encounter Summary ---
Author Organization [facility] Address [address] [place] [address] Phone Care Team Providers Care Math Instructor Name Role Phone Monika Lamb PAC Primary Care Pro vider Reason for Visit * Reason Comments Cough Generalized Body Aches Fever 100.4 started yester day Sinus Problem With burning Encounter Details Date Type Department Care Team (Late st Contact Info) Description 06/03/2025 10:15 AM FIELD OPERATIONS COORDINATOR Office Visit [facility] - Primary Care - [place] [address] [place] [address] Pilar Feliz, AUTOMOBILE ASSEMBLY SUPERVISOR, ASSISTANT AT SURGERY [address] [place] [address] Influenza B (Primary Dx); Threatened miscarriage in early ; Acute cough; Fever, unspecified fever cause; Body aches Discharge Disposition: Discharged to home or Selfcare Social History Tobacco Use Types Packs/Day Years [...] PM CDT Sexual Orientation Not on file documented as of this encounter Last Filed Vital Signs Vital Sign Reading Time Taken Comments Blood Pressure 140/100 06/03/2025 10:13 AM FIELD OPERATIONS COORDINATOR Pulse 115 06/03/2025 10:13 AM FIELD OPERATIONS COORDINATOR Temperature 36.5 C (97.7 F) 06/03/2025 10:13 AM FIELD OPERATIONS COORDINATOR Respiratory Rate 12 06/03/2025 10:13 AM FIELD OPERATIONS COORDINATOR Oxygen Saturation 99% 06/03/2025 10:13 AM FIELD OPERATIONS COORDINATOR Inhaled Oxygen Concentration - - Weight 126.6 kg (279 lb) 06/03/2025 10:13 AM FIELD OPERATIONS COORDINATOR Height - - Body Mass Index 54.49 12/31/2024 1:25 PM CDT documented in this encounter Functional Status * BP Answer Date of Assessment Author 140/100 06/03/2025 10:13 AM FIELD OPERATIONS COORDINATOR Silvina Humphries, RMA * Temp Answer Date of Assessment Author 97.7 06/03/2025 10:13 AM FIELD OPERATIONS COORDINATOR Silvina Humphries, RMA * Temp src Answer Date of Assessment Author Temporal 06/03/2025 10:13 AM FIELD OPERATIONS COORDINATOR Silvina Humphries, RMA * Pulse Answer Date of Assessment Author 115 06/03/2025 10:13 AM FIELD OPERATIONS COORDINATOR Silvina Humphries, RMA * Resp Answer Date of Assessment Author 12 06/03/2025 10:13 AM FIELD OPERATIONS COORDINATOR Silvina Humphries, RMA * SpO2 Answer Date of Assessment Author 99 06/03/2025 10:13 AM FIELD OPERATIONS COORDINATOR Silvina Humphries, RMA * Weight Answer Date of Assessment Author [id number] 06/03/2025 10:13 AM FIELD OPERATIONS COORDINATOR Silvina Humphries L, RMA documented as of this encounter Mental Status * BP Answer Entry Date Author 140/100 06/03/2025 10:13 AM FIELD OPERATIONS COORDINATOR Silvina Humphries, RMA * Temp Answer Entry Date Author 97.7 06/03/2025 10:13 AM FIELD OPERATIONS COORDINATOR Silvina Humphries, RMA * Pulse Answer Entry Date Author 115 06/03/2025 10:13 AM FIELD OPERATIONS COORDINATOR Silvina Humphries, RMA * SpO2 Answer Entry Date Author 99 06/03/2025 10:13 AM FIELD OPERATIONS COORDINATOR Silvina Humphries RMA * Weight Answer Entry Date Author [id number] 06/03/2025 10:13 AM FIELD OPERATIONS COORDINATOR Silvina Humphries RMA documented in this encounter Patient Instructions * Patient Instructions* Pilar Feliz APRN, CNP - 06/03/2025 10:15 AM FIELD OPERATIONS COORDINATOR Take all medications as prescribed. Please continue with a balanced lifestyle of exercise and healthy eating. If any question, please call. Thanks for coming in today! D OPERATIONS COORDINATOR documented in this encounter Progress Notes * Silvina Humphries RMA - 06/03/2025 10:15 AM CST Gabo Heide, 24 y.o., female is here for Cough, Generalized Body Aches, Fever (100.4 started yesterday ), and Sinus Problem (With burning ) Medication Refills: Patient reports/denies need for medication refills. Orders Pended: no Requested Prescriptions No prescriptions requested or ordered in this encounter Home Medications Medication Sig Start Date End Date Taking? Authorizing Provider hydroCHLOROthiazide (MICROZIDE) 12.5 MG Capsule Take 1 Capsule by mouth daily. Patient not taking: Reported on 05/15/2025 02/01/25 Monika Lamb PAC SUMAtriptan (IMITREX) 25 MG Tablet Take 1 Tablet by mouth once as needed for Migraine for up to 1 dose. Use as directed. May repeat dose in 2 hours if headache recurs. Patient not taking: Reported on 05/15/2025 02/01/25 Monika Lamb PAC There are no discontinued medications. I have reviewed the home medication list with the patient and have reconciled discrepancies. The list is accurate to the best of my knowledge. Smoking Status: Social History[1] Smoking Cessation Counseling Given: no Health Care Maintenance: Health Maintenance Due Topic Date Due TdaP Immunization Never done Varicella Immunization (1 of 2 - 13+ 2-dose series) Never done Human Papillomavirus (HPV) Immunization (1 - 3-dose series) Never done Hepatitis B Immunization (1 of 3 - 19+ 3-dose series) Never done Influenza Immunization (1) Never done SARS-COV-2 Immunization ( season) Never done Orders Pended: no The following BPA's have been addressed with the patient today: BMI [1] Social History Tobacco Use Smoking status: Never Passive exposure: Never Smokeless tobacco: Never Vaping Use Vaping status: Never Used Substance Use Topics Alcohol use: Yes Drug use: Not Currently D OPERATIONS COORDINATOR * Pilar Feliz APRN, CNP - 06/03/2025 10:15 AM CST [facility] [address] [address] Dept: [phone] Dept Loc: [phone] Loc Patient: Gabo Jaeger : 2000 Sex: female Subjective: History of Present Illness The patient presents for evaluation of influenza B and . She has been diagnosed with influenza B, with the results for influenza A and COVID-19 still pending. She experienced a fever yesterday and is currently exhibiting a cough, which she suspects may be related to her influenza diagnosis. She is employed at a [employer] and is concerned about potential exposure to her colleagues. She has been utilizing salt water flushes as a part of her treatment regimen.She was sick 2 to 3 weeks ago and has only been feeling well for about 3 days. She is scheduled for a gynecology appointment at 3:00 PM today. She reports no cramping or bleeding. She sought emergency care on Tuesday due to brown discharge and spotting. At that time, she was informed that she was 10 weeks , but the fetus was only measuring at 9 weeks and 3 days. A heartbeat was detected on 05/15/2025. Blood work and a urine sample were collected, but she was not informed of the results. A vaginal ultrasound was performed. This is her first . Occupation: Works at a bank Review of Systems Constitutional: Positive for chills, fever and malaise/fatigue. HENT: Positive for congestion. Eyes: Negative. Respiratory: Positive for cough. Cardiovascular: Negative. Gastrointestinal: Negative. Genitourinary: Negative. Musculoskeletal: Negative. Skin: Negative. Neurological: Negative. Psychiatric/Behavioral: Negative. Objective: Vitals: 06/03/25 1013 BP: (!) 140/100 BP Location: Right Arm BP Position: Sitting BP Cuff Size: Regular Pulse: (!) 115 Resp: 12 Temp: 97.7 ??F (36.5 ??C) TempSrc: Temporal SpO2: 99% Weight: 279 lb (126.6 kg) LMP: Patient's last menstrual period was 12/17/2024. Body mass index is 54.49 kg/m??. Physical Exam Vitals and nursing note reviewed. Constitutional: General: She is not in acute distress. Appearance: She is well-developed. HENT: Head: Normocephalic and atraumatic. Right Ear: External ear normal. Left Ear: External ear normal. Mouth/Throat: Mouth: Mucous membranes are moist. Pharynx: Oropharynx is clear. Eyes: Conjunctiva/sclera: Conjunctivae normal. Neck: Vascular: No carotid bruit. Cardiovascular: Rate and Rhythm: Normal rate and regular rhythm. Heart sounds: Normal heart sounds. Pulmonary: Effort: Pulmonary effort is normal. No respiratory distress. Breath sounds: Normal breath sounds. Musculoskeletal: Right lower leg: No edema. Left lower leg: No edema. Skin: General: Skin is warm and dry. Neurological: Mental Status: She is alert and oriented to person, place, and time. Psychiatric: Mood and Affect: Mood normal. Behavior: Behavior normal. Thought Content: Thought content normal. Judgment: Judgment normal. Results Labs - Influenza B Test: Positive Medical Decision Making: Assessment & Plan Diagnoses and all orders for this visit: Influenza B Threatened miscarriage in early Acute cough - POC SARS-COV-2 BY MOLECULAR - POC INFLUENZA A AND B BY MOLECULAR Fever, unspecified fever cause - POC SARS-COV-2 BY MOLECULAR - POC INFLUENZA A AND B BY MOLECULAR Body aches - POC SARS-COV-2 BY MOLECULAR - POC INFLUENZA A AND B BY MOLECULAR Assessment & Plan 1. Influenza B: - Tested positive for influenza B and is currently contagious. - The cough is likely associated with the flu and may worsen before improving. Duration of symptomsis expected to be approximately 7 to 14 days, but it could vary depending on her body's response. - Advised to maintain adequate hydration with water and Gatorade to help thin out mucus. Should stay out of work until fever-free for 24 hours without the use of Tylenol or Motrin. After the fever subsides, may still experience cold symptoms and should consider wearing a mask and practicing good hand hygiene. - A note for her employer has been provided, recommending a return to work on 06/07/2025. 2. : - Reported brown discharge and spotting and went to the ER on Tuesday. An ultrasound showed the fetus measuring 9 weeks and 3 days, although she was supposed to be 10 weeks along. - No heartbeat was detected during the last ultrasound. - Advised that the miscarriage process may resemble a heavy menstrual period, with significant blood loss initially, followed by a gradual decrease. Should use overnight pads for sufficient coverage. - Scheduled to see her cyber security analyst today for further evaluation, including potential hormone levelchecks and another ultrasound. Follow-up Information Return if symptoms worsen or fail to improve. POCT Flu and COVID Encourage to increase hydration Encourage to rest Tylenol or motrin for fever and pain Continue with Manager Plan appt today. LOS Today OFFICE/OP EST LVL 4 MOD MDM/30-39 MIN Time spent in open communication and establishing rapport with the patient was essential for effectively conveying assessment and plan, optimizing health outcomes, and fostering a trusting long-term provider-patient relationship. D OPERATIONS COORDINATOR documented in this encounter Plan of Treatment Upcoming Encounters Date Type Department Care Team (Late st Contact Info) Description 09/02/2025 8:00 AM CDT Office Visit [facility] - Primary Care - [place] [address] [place] [id number] Monika Lamb, LISA [address] [place] [address] documented as of this encounter Procedures Procedure Name Priority Date/Time Associated Diagnosis Comments POC SARS-COV-2 BY MOLECULAR Routine 06/03/2025 10:25 AM FIELD OPERATIONS COORDINATOR Acute cough Fever, unspecified fever cause Body aches POC INFLUENZA A AND B BY MOLECULAR Routine 06/03/2025 10:25 AM FIELD OPERATIONS COORDINATOR Acute cough Fever, unspecified fever cause Body aches documented in this encounter Results * (ABNORMAL) POC INFLUENZA A AND B BY MOLECULAR (06/03/2025 10:25 AM FIELD OPERATIONS COORDINATOR) INFLUENZA A RNA Negative Negative, Invalid INFLUENZA B RNA Positive(A) Negative, Invalid PROCEDURE CONTROL Valid 06/03/2025 10:2 5 AM FIELD OPERATIONS COORDINATOR Pilar Feliz APRN, CNP POINT OF CARE TESTING (MAN UAL) Final Result * POC SARS-COV-2 BY MOLECULAR (06/03/2025 10:25 AM FIELD OPERATIONS COORDINATOR) SARSCOV2 Negative Negative, INVALID PROCEDURE CONTROL Valid 06/03/2025 10:2 5 AM FIELD OPERATIONS COORDINATOR us Pilar Feliz APRN, PATY POINT OF CARE TESTING (MAN UAL) Final Result documented in this encounter Visit Diagnoses Diagnosis Influenza B- Primary Influenza with other respiratory manifestations Threatened miscarriage in early Threatened , unspecified as to episode of care Acute cough Fever, unspecified fever cause Body aches Generalized pain documented in this encounter Additional Health Concerns Infection Onset Date Last Indicated Resolved Time COVID - 19 06/03/2025 06/03/2025 06/03/2025 10:3 7 AM FIELD OPERATIONS COORDINATOR Respiratory Rule-Out 06/03/2025 06/03/2025 025 10:37 AM FIELD OPERATIONS COORDINATOR Assessment Noted Time PHQ-9 Depression Total Score: 0 01/01/20 25 1:27 PM CDT documented as of this encounter Care Teams Math Instructor Relationship Specialty Start Date End Date Monika Lamb, LISA PCP - General Physician [employer] Lead Ads Marketing 12/03/22 documented as of this encounter
--- OUTSIDE RECORDS SUMMARY | 2025-06-04 13:20 | XMS_ITS | Encounter Summary ---
Author Organization [facility] Address [address] [place] [address] Phone Care Team Providers Care Fruit Farmer Name Role Phone Monika Lamb Primary Care Pro vider Reason for Visit * Reason Onset Date Comments Advice Only 06/03/2025 Encounter Details Date Type Department Care Team (Late st Contact Info) Description 06/03/2025 Telephone [facility] [address] [place] [address] Monika Lamb, [facility] [address] [place] [address] Advice Only Social History Tobacco Use Types Packs/Day Years Used Date Smoking Tobacco: Never Passive Smoke Exposure: Never Smokeless Tobacco: Never Alcohol Use Standard Drinks/Week Comments Yes 0 [...] on file documented as of this encounter Miscellaneous Notes * Telephone Encounter - TrayPilar villasenor APRN, CNP - 06/03/2025 9:35 AM FINISH PATCHER Pt is scheduled at 10:15 today. SH PATCHER * Telephone Encounter - Hoa Castro RN - 06/03/2025 8:44 AM CST SITUATION: Flu like symptoms. BACKGROUND: Per chart review, Last office visit with LISA Ribeiro on 05/15/25. ASSESSMENT: Symptom Description / Location: Patient is follow up with DIRECTOR ZONE later today Over the weekend - went to [facility] and found out she is having a miscarriage Patient wanting to see LISA Ribeiro in office today if available for flu like sym,ptoms Fever 100.4F Chills Body aches Back pain Cough - productive Chest pain when coughing Denies flu exposure that she is aware of. Patient declined full triage at this time RECOMMENDATION: All Patient Appointments Date & Time Provider Department Dept Phone 06/03/2025 10:15 AM Pilar Feliz [facility] [phone] Encounter routed to provider high priority to notify. Discussed utilizing [place] to: E-check in prior to upcoming appointment SH PATCHER * Telephone Encounter - Fauzia Danielson - 06/03/2025 8:44 AM CST Symptoms: Fever, Cough, Chest Pain - Adult Outcome: Transfer to kiln firer helper queue Reason: Caller denied all higher acuity questions The caller accepted this outcome. Caller Denied: * Can't stand (unless normally can't stand) * Acting confused * Choked on something * Trouble breathing * Passed out * Severe pain now * Heaviness on chest SH PATCHER documented in this encounter Plan of Treatment Upcoming Encounters Date Type Department Care Team (Late st Contact Info) Description 09/02/2025 8:00 AM CDT Office Visit [facility] [address] [place] [id number] Monika Lamb, LISA [address] [place] [address] documented as of this encounter Visit Diagnoses Not on filedocumented in this encounter Additional Health Concerns Infection Onset Date Last Indicated Resolved Time COVID - 19 06/03/2025 06/03/2025 06/03/2025 10:3 7 AM FINISH PATCHER Respiratory Rule-Out 06/03/2025 06/03/2025 025 10:37 AM FINISH PATCHER Influenza 06/03/2025 06/03/2025 Assessment Noted Time PHQ-9 Depression Total Score: 0 01/01/20 25 1:27 PM CDT documented as of this encounter Care Teams Fruit Farmer Relationship Specialty Start Date End Date Monika Lamb, LISA PCP - General Physician Lens Assorter 12/03/22 documented as of this encounter
--- OUTSIDE RECORDS SUMMARY | 2025-06-04 13:20 | XMS_ITS | Encounter Summary ---
Author Organization [facility] Care Team Providers Care Vice President Network Development Name Role Phone Monika Lamb Primary Care Pro vider Encounter Details Date Type Department Care Team (Latest Contact Info) Description 06/03/2025 Travel Social History Tobacco Use Types Packs/Day Years [...] on file documented as of this encounter Plan of Treatment Upcoming Encounters Date Type Department Care Team (Late st Contact Info) Description 09/02/2025 8:00 AM CDT Office Visit [facility] - Primary Care - [place] [address] [place] [address] Monika Lamb PAC [address] [place] [address] documented as of this encounter Visit Diagnoses Not on filedocumented in this encounter Additional Health Concerns Infection Onset Date Last Indicated Resolved Time COVID - 19 06/03/2025 06/03/2025 06/03/2025 10:3 7 AM NEW ACCOUNTS CLERK Respiratory Rule-Out 06/03/2025 06/03/2025 025 10:37 AM NEW ACCOUNTS CLERK Influenza 06/03/2025 06/03/2025 Assessment Noted Time PHQ-9 Depression Total Score: 0 01/01/20 25 1:27 PM CDT documented as of this encounter Care Teams Vice President Network Development Relationship Specialty Start Date End Date Monika Lamb, LISA PCP - General Physician Weaver Apprentice 12/03/22 documented as of this encounter
--- OUTSIDE RECORDS SUMMARY | 2025-06-04 13:20 | XMS_ITS | Clinical Summary ---
Author Organization [facility] [place] Address [address] [place] [address] Phone Care Team Providers Care Erp Analyst Name Role Phone Monika Lambelle PAC Primary Care Pro vider Allergies No known [...] Active Problems Problem Noted Date Diagnosed Date Threatened miscarriage 06/03/2025 Primary hypertension 02/01/2025 Generalized headaches 02/01/2025 Well adult exam 02/01/2025 Obesity without serious comorbidity 02/01/2025 Comments Yes Encounters Date Type Department Care Team Description 06/03/2025 10:15 AM CALIBRATOR BAROMETERS Office Visit [facility] - Primary Care - [place] [address] [place] [address] Pilar Feliz, [employer] COMMUNICATIONS SERGEANT, WOVEN PAPER HAT MENDER Influenza B (Primary Dx); Threatened miscarriage in early ; Acute cough; Fever, unspecified fever cause; Body aches Discharge Disposition: Discharged to home or Selfcare 06/03/2025 Travel 06/03/2025 [facility]phone [facility] [address] [place] [address] [phone] Monika Lamb, PAC Advice Only 05/15/2025 10:15 AM CALIBRATOR BAROMETERS Office Visit [facility] - Primary Care - [address] [phone] Monika Lamb, PAC Acute cough (Primary Dx); Nasal congestion; Sore throat Discharge Disposition: Discharged to home or Selfcare 05/15/2025 Travel 05/15/2025 Nurse Triage [facility] [place] [facility] [address] [place] [address] [phone] Monika Lamb, PAC Advice Only; Cough; Fever; Sore Throat from Last 3 Months Family History Medical [...] Comments Blood Pressure 140/100 06/03/2025 10:13 AM CALIBRATOR BAROMETERS Pulse 115 06/03/2025 10:13 AM CALIBRATOR BAROMETERS Temperature 36.5 C (97.7 F) 06/03/2025 10:13 AM CALIBRATOR BAROMETERS Respiratory Rate 12 06/03/2025 10:13 AM CALIBRATOR BAROMETERS Oxygen Saturation 99% 06/03/2025 10:13 AM CALIBRATOR BAROMETERS Inhaled Oxygen Concentration - - Weight 126.6 kg (279 lb) 06/03/2025 10:13 AM CALIBRATOR BAROMETERS Height 152.4 cm (5') 12/31/2024 1:25 PM CDT Body Mass Index 54.49 12/31/2024 1:25 PM CDT Plan of Treatment Upcoming Encounters Date Type Department Care Team (Late st Contact Info) Description 09/02/2025 8:00 AM CDT Office Visit [facility] - Primary Care - [place] [address] [place] [phone] Monika Lamb PAC [address] [place] [address] Health Maintenance Due Date Last Done Comments [...] Name Priority Date/Time Associated Diagnosis Comments POC INFLUENZA A AND B BY MOLECULAR Routine 06/03/2025 10:25 AM CALIBRATOR BAROMETERS Acute cough Fever, unspecified fever cause Body aches POC SARS-COV-2 BY MOLECULAR Routine 06/03/2025 10:25 AM CALIBRATOR BAROMETERS Acute cough Fever, unspecified fever cause Body aches POC SARS-COV-2 BY MOLECULAR Routine 05/15/2025 10:15 AM CALIBRATOR BAROMETERS Acute cough Nasal congestion Sore throat POC INFLUENZA A AND B BY MOLECULAR Routine 05/15/2025 10:15 AM CALIBRATOR BAROMETERS Acute cough Nasal congestion Sore throat HEPATITIS C ANTIBODY Routine 02/01/2025 11:16 AM CDT Need for hepatitis C screening test from Last 3 Months or Most Recently Relevant to Health Maintenance Results * POC SARS-COV-2 BY MOLECULAR (06/03/2025 10:25 AM CALIBRATOR BAROMETERS) Only the most recent of2 resultswithin the time period is included. SARSCOV2 Negative Negative, INVALID PROCEDURE CONTROL Valid 06/03/2025 10:2 5 AM CALIBRATOR BAROMETERS Pilar Feliz APRN, WOVEN PAPER HAT MENDER POINT OF CARE TESTING (MAN UAL) Final Result * (ABNORMAL) POC INFLUENZA A AND B BY MOLECULAR (06/03/2025 10:25 AM CALIBRATOR BAROMETERS) Only the most recent of2 resultswithin the time period is included. Pathologist [facility] INFLUENZA A RNA Negative Negative, Invalid INFLUENZA B RNA Positive(A) Negative, Invalid PROCEDURE CONTROL Valid 06/03/2025 10:2 5 AM CALIBRATOR BAROMETERS Pilar Feliz APRN, WOVEN PAPER HAT MENDER POINT OF CARE TESTING (MAN UAL) Final Result * HEPATITIS C ANTIBODY (02/01/2025 11:16 AM CDT) hepatitis C antibody 0.08 <1 S/CO 02/01/2025 10:12 PM CDT [facility] Comment: Signal/Cutoff ratio < 0.79 is Nondetected Signal/Cutoff ratio 0.80-0.99 is Grayzone Signal/Cutoff ratio > 0.99 is Detected Supplemental assays are recommended if signal/cutoff ratio is >/=1.00. Signal/cutoff ratio result >/= 5.00 is 97% predictive of positivity for recombinant immunoblot assay (RIBA) and will be reported to the [place] Department of Public Health as required. Blood Venipuncture / Unknown 02/01/2025 11:16 AM CDT 02/01/2025 11:16 AM CDT us Monika Lamb PAC CHEMISTRY ORDERAB LES Final Result [facility] [address] [place] [address], from Last 3 Months or Most Recently Relevant to Health Maintenance Additional Health Concerns Infection Onset Date Last Indicated Influenza 06/03/2025 06/03/2025 Insurance Care Teams Erp Analyst Relationship Specialty Start Date End Date Monika Lamb PAC PCP - General Physician Dowel Inspector 12/03/22
--- OUTSIDE RECORDS SUMMARY | 2025-06-04 13:20 | XMS_ITS | Clinical Summary ---
Author Organization [facility] Virtual Care Address [address] [place] [phone] Phone Care Team Providers Care Hospice Volunteer Coordinator Name Role Phone Monika Lamb Primary Care [...] on file Legal Sex Female 12:03 AM MEAT AND SEAFOOD MANAGER Gender Identity Not on file Sexual Orientation [...] HPV Vaccines Completed 05/01/2012, 01/2011, 12/15/2010 Insurance [facility] CHOICE OOS Care Teams Hospice Volunteer Coordinator Relationship Specialty Start Date End Date Monika Lamb PA PCP - General Neurosurgery 03/27/23
== END 2025-06-04 12:59 | disposition home or self-care (01) ==
PROVIDERS: PCP Physician Assistant; Visit Provider Student in an Organized Health Care Education/Training Program
DX: O02.1 Missed abortion (principal)
CPT/HCPCS: 36415; 84702; 86900; 86901